=== PATIENT | female | born 1990 | race Two or more races ===

== ENCOUNTER 2017-08-26 16:40 | Emergency (ER) | payer BC, OTHER ==
[~2017-08-26] VITALS: Ht 167.6 cm; Wt 106.1 kg
[2017-08-26 16:58] VITALS: BP 129/88
== END 2017-08-26 19:22 | disposition left against medical advice (07) ==
LOC: ER 17:00
DX: M54.2 Cervicalgia (principal); Z53.21 Procedure and treatment not carried out due to patient leaving prior to being seen by health care provider; V43.92XA Unspecified car occupant injured in collision with other type car in traffic accident, initial encounter; Y93.89 Activity, other specified; Y92.89 Other specified places as the place of occurrence of the external cause; Y99.8 Other external cause status
CPT/HCPCS: 93005

== ENCOUNTER 2019-10-09 18:15 | Emergency (ER) | payer BC ==
[~2019-10-09] VITALS: Ht 167.6 cm; Wt 122.5 kg
[2019-10-09 18:33] VITALS: BP 117/70
== END 2019-10-10 00:32 | disposition left against medical advice (07) ==
LOC: ER 18:15
DX: R05 Cough (principal); Z53.21 Procedure and treatment not carried out due to patient leaving prior to being seen by health care provider